=== PATIENT | male | born 1975 | race Caucasian/White ===

== ENCOUNTER 2016-11-01 23:36 | Emergency (ER) | payer OTHER ==
[~2016-11-01] VITALS: Ht 177.8 cm; Wt 98.7 kg
[2016-11-01 23:48] VITALS: BP 152/106; PULSE 103; RESP 16; TEMP 98; O2SAT 94
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
[2016-11-02] MEDS ORDERED: ONDANSETRON HCL 4 MG/2 ML VIAL IV ONE (01:30)
[2016-11-02] MEDS: SODIUM CHLOR 0.9% 1000 ML INJ 1,000 ML IV SCH ×2 (01:44→02:00)
[2016-11-02 02:00] VITALS: BP 154/88; PULSE 89; RESP 18; O2SAT 98
[2016-11-02] MEDS ORDERED: HYDROmorphone HCL PF 1 MG/ML VIAL IV PUSH ONE (02:00)
[2016-11-02 02:26] VITALS: RESP 16
[2016-11-02] MEDS ORDERED: HYDR-3533 PO (02:33)
[2016-11-02] MEDS ORDERED: ZOFR4TAB PO (02:33)
[2016-11-02 02:49] VITALS: BP 140/79
== END 2016-11-02 02:50 | disposition home or self-care (01) ==
LOC: PHED 23:36
DX: S05.92XA Unspecified injury of left eye and orbit, initial encounter (principal); S00.12XA Contusion of left eyelid and periocular area, initial encounter; W39.XXXA Discharge of firework, initial encounter; Y93.9 Activity, unspecified; Y92.9 Unspecified place or not applicable; Y99.9 Unspecified external cause status
CPT/HCPCS: 96361; 96374; 96375; 99284; J1170; J2405; J7030